=== PATIENT | male | born 1945 | race American Indian/Alaskan Native ===

== ENCOUNTER 2021-12-14 06:33 | Day surgery (SDC) | payer MEDICARE ==
[2021-12-14] MEDS ORDERED: SODIUM CHLORIDE 0.9% 1000 ML 1,000 ML ONE (06:53)
[2021-12-14] MEDS ORDERED: ASPIRIN EC 325 MG TAB PO SCH (07:30)
[2021-12-14 07:47] LABS: Calcium 9.3 mg/dL (8.4-10.2)
[2021-12-14] MEDS ORDERED: SODIUM CHLORIDE 0.9% 500 ML 500 ML IV SCH (08:00)
[2021-12-14] MEDS ORDERED: SODIUM CHLORIDE 0.9% 1000 ML 1,000 ML IV SCH (08:00)
[2021-12-14] MEDS ORDERED: HEPARIN/NS 5000 UNIT/500ML 1,000 ML IR ONE (08:42)
[2021-12-14] MEDS ORDERED: NITROGLYCERIN SYRINGE 3 ML ONE (08:43)
[2021-12-14] MEDS ORDERED: LIDOCAINE (1%) 10 MG/1 ML VIAL 20 ML MDV ONE (08:43)
[2021-12-14] MEDS ORDERED: fentaNYL 100 MCG/2 ML INJ ONE (08:43)
[2021-12-14] MEDS ORDERED: MIDAZOLAM 2 MG/2 ML INJ ONE (08:43)
[2021-12-14] MEDS: HEPARIN 10,000 UNITS/10 ML VIAL ONE ×3 (09:17→09:40)
[2021-12-14] MEDS: VERAPAMIL 5 MG/2 ML INJ ONE ×2 (09:19→09:25)
[2021-12-14] MEDS ORDERED: HEPARIN/NS 5000 UNIT/500ML 500 ML IR ONE (10:17)
--- NOTE | 2021-12-14 10:43 | Electrocardiograph Report ---
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
[2021-12-14] MEDS ORDERED: HYDROcodone/ACETAMINOPHEN 5-325 MG TAB PO PRN (11:00)
[2021-12-14] MEDS ORDERED: traMADol 50 MG TAB PO PRN (11:00)
--- NOTE | 2021-12-14 12:24 | Short Stay Summary ---
Short Stay Documentation - History H&P: obtained from office - Allergies and Medications Current Medications: Allergies No Known Allergies Allergy (Verified 12/14/21 07:01) Home Medications Medication Instructions Recorded Confirmed Last Taken Type Aspirin [Adult Aspirin] 81 mg PO DAILY 12/14/21 12/14/21 12/13/21 History Ezetimibe [Zetia] 10 mg PO DAILY 12/14/21 12/14/21 12/13/21 History Metoprolol SUCCINATE ER TAB 25 mg PO DAILY 12/14/21 12/14/21 12/13/21 History amLODIPine [Norvasc] 5 mg PO DAILY 12/14/21 12/14/21 12/13/21 History Active Medications Hydrocodone Bitart/Acetaminophen (Hydrocodone/Acetaminophen 5-325 Mg Tab) 1 each PO Q4H PRN PRN Reason: Pain, Moderate (4-6) Aspirin (Aspirin Ec 325 Mg Tab) 325 mg PO ONCE@0730 ANALI Stop: 12/14/21 15:00 Last Admin: 12/14/21 07:55 Dose: 325 mg Sodium Chloride (Nacl 0.9% 1000 Ml) 1,000 mls @ 100 mls/hr IV DIRECT ANALI Tramadol HCl (Tramadol 50 Mg Tab) 50 mg PO Q4H PRN PRN Reason: Pain, Mild (1-3) - Physical exam Integumentary: other (Dressing clean dry and intact with no signs of bleeding or hematoma) - Brief post op/procedure progress note Date of procedure: 12/14/21 Pre-op diagnosis: Abnormal stress test/coronary artery disease Post-op diagnosis: same Anesthesia: local Estimated blood loss: minimal - Hospital course Hospital course: Patient presents today for cardiac cath. Patient tolerated seizure well with no complication. 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 - Disposition Condition at discharge: Good Disposition: 01 HOME / SELF CARE / HOMELESS - Discharge Diagnoses (1) Coronary artery disease Status: Acute (2) Ischemic cardiomyopathy Status: Acute (3) Dyslipidemia Status: Acute (4) Renal insufficiency Status: Acute (5) Hypertension Status: Acute Short Stay Discharge Plan Activity: advance as tolerated Diet: low fat, low cholesterol, low salt Wound: keep clean and dry, per your surgeon's advice Follow up with: EBONIE BHATTI MD [Primary Care Provider] - 7 Days AMBER LOVETT MD [Staff Physician] - 01/10/22 11:15 am ( patient follow-up appointment with Dr. Lovett, 01/10/2022 at 11:15 AM at our [place] location. Phone #[phone])
[2021-12-14 14:32] VITALS: BP 141/76
--- NOTE | 2021-12-15 07:56 | Cardiac Catherization Report ---
DATE OF SERVICE: 12/14/2021 LEFT HEART CATHETERIZATION/IFR REPORT CLINICAL INFORMATION: This is a 76-year-old male with known history of myocardial infarction with PCI of the RCA, has decreased LV function on stress test with fixed defects, here for left heart catheterization with decreased LV function and history of renal insufficiency. Procedure was done with moderate sedation, started 9:20, finished at 10:20, 60 minutes of moderate sedation. DESCRIPTION OF PROCEDURE: Procedure was done via the right radial artery, sterile technique and local anesthesia. A 6-Tunisian radial sheath inserted. Left system engaged with a JL3.5 catheter. Left main is short and medium caliber and patent. LAD proximal, mid diffuse 50%. Diagonal 1 ostial 80%, small caliber, diagonal 2 patent, distal LAD patent. Circumflex, large caliber vessel, proximal 60%. OM1 is a large caliber and patent. Circumflex in AV groove was a medium caliber was patent. RCA engaged with JR4 catheter, is a large dominant vessel. Mid has a focal 60% lesion and then the stents in the mid to distal patent. PDA, PLV are patent. LV gram done in MONGOLIAN and GODINEZ shows mild LV dysfunction, EF 45%. LVEDP at 29 mmHg, LV is 163, aortic is 166/80. No gradient across the aortic valve on pullback and then IFR of the circumflex engaged to the left system, EBU 3.5 did not work, so had to use JL 3.5. ACT was obtained and IFR was normalized and placed into the OM and showed IFR spot of 0.94. Removed the wire. Angiogram continued ANITRA 3 flow, no dissection or perforation, 60% proximal circ lesion. IFR of the RCA, engaged the right system with JR4 6-Tunisian guiding catheter, equalization of wire and placed an IFR distally, result was 0.98, so the IFR was removed. Continued ANITRA 3 flow, no dissection, perforation, 60% mid RCA lesion. A 6-Tunisian guiding catheter taken over a guidewire. A 6-Tunisian radial sheath was discontinued. Radial band applied. No hematoma, no bleeding. SUMMARY: 1. Left main patent, LAD mid 50%. Diagonal 1 ostial 80%. Diagonal 2 patent, distal LAD patent, circumflex proximal 60% with a negative IFR at 0.94. OM1 patent, distal circ patent. RCA proximal patent, mid stent 60%. Negative IFR 0.98. Mid to distal stent is patent. PDA, PLV patent. 2. Mild LV dysfunction, EF 45%. 3. Continue medical management of nonobstructive coronary artery disease and LV dysfunction. The patient tolerated the procedure well. TID: [id number] RECEIPT: [id number] ALEK/KAZ/KAY MTDD
== END 2021-12-14 15:15 | disposition home or self-care (01) ==
LOC: CATHLABREC 06:33
PROVIDERS: ATTEND Internal Medicine
DX: R94.39 Abnormal result of other cardiovascular function study (principal); I25.10 Atherosclerotic heart disease of native coronary artery without angina pectoris; I12.9 Hypertensive chronic kidney disease with stage 1 through stage 4 chronic kidney disease, or unspecified chronic kidney disease; N18.30 Chronic kidney disease, stage 3 unspecified; E78.5 Hyperlipidemia, unspecified; I25.5 Ischemic cardiomyopathy; I25.2 Old myocardial infarction; Z79.82 Long term (current) use of aspirin; Z79.899 Other long term (current) drug therapy; Z98.890 Other specified postprocedural states
CPT/HCPCS: 36415; 80048; 93005; 93458; 93571; 93572; 96360; 96361; 99156; 99157; C1769; C1887; C1894; J1644; J1815; J2250; J3010; J7030; Q9967

== ENCOUNTER 2022-04-04 18:34 | Emergency (ER) | payer MEDICARE ==
[2022-04-04] MEDS ORDERED: ACETAMINOPHEN 325 MG TAB PO ONE (20:25)
[2022-04-04 21:18] LABS: Bacteria,Urine 1+ /HPF (Negative); Mucus,Urine 3+ /HPF
[2022-04-04 21:18] LABS: Hemoglobin 14.5 gm/dl (11.8-15.2); Mean Corpuscular HGB Conc 32 % (32-34); Mean Corpuscular Volume 97 fl (84-94); Platelet Count 264 K/mm3 (140-440); Red Blood Count 4.64 M/mm3 (3.65-5.03); Red Cell Distribution Width 13.7 % (13.2-15.2)
[2022-04-04 21:20] LABS: Color,Urine Yellow (Yellow)
[2022-04-04 21:29] LABS: Albumin 4.3 g/dL (3.9-5); Calcium 9.5 mg/dL (8.4-10.2)
--- NOTE | 2022-04-04 22:24 | Ultrasound Report ---
ULTRASOUND SCROTUM INDICATION / CLINICAL INFORMATION: fever, testicular pain and swelling. COMPARISON: None available. FINDINGS -- RIGHT: TESTIS: Size = 3.8 x 2.9 x 3.7 cm. - Appearance: No significant abnormality. - Cyst / Mass: None. - Color Doppler Flow: Hypervascular EPIDIDYMIS: Hypervascular. Epididymal cysts are also noted. HYDROCELE: Moderate VARICOCELE: None demonstrated. FINDINGS -- LEFT: TESTIS: Size = 3.3 x 3.2 x 3.8 cm. - Appearance: No significant abnormality. - Cyst / Mass: None. - Color Doppler Flow: No significant abnormality. EPIDIDYMIS: No significant abnormality. HYDROCELE: Small VARICOCELE: None demonstrated. ADDITIONAL FINDINGS: None. IMPRESSION: 1. Hypervascular right testicle and epididymis suggesting epididymoorchitis. There is a moderate righ t and small left hydrocele. Signer Name: Bolivar Stone DO Signed: 04/04/2022 10:20 PM Workstation Name: [id number]
[2022-04-05] MEDS ORDERED: ACETAMINOPHEN W/CODEINE 300-30 MG TAB PO ONE (00:17)
[2022-04-05] MEDS ORDERED: levoFLOXacin 500 MG TAB PO ONE (00:17)
[2022-04-05 01:26] VITALS: BP 130/69
--- NOTE | 2022-04-05 01:43 | Emergency Department Report ---
ED Male HPI - General Chief complaint: Urogenital-Male Stated complaint: BLOOD IN URINE Time Seen by Provider: 04/05/22 00:00 Source: patient Mode of arrival: Ambulatory Limitations: No Limitations - History of Present Illness Initial comments: 76-year-old black male with a past medical history of hypertension, hyperlipidemia, and CAD presents to the emergency department for evaluation of 2-day history of right testicular pain and swelling. He states that pain has been 9 out of 10. He denies injury or trauma and states that he is unsure if he had a fever at home. He denies abdominal pain, dysuria, and penile discharge. MD Complaint: testicle swelling, groin pain -: Gradual, days(s) (2) Location: right testicle Radiation: none Severity: severe Severity scale (0 -10): 10 Quality: aching Consistency: constant Worsens with: other (Ambulation) swelling. denies: discharge, mass, rash, urinary retention, blood in urine, dysuria, fever, nausea/vomiting, incontinence - Related Data Home Medications Medication Instructions Recorded Confirmed Last Taken Aspirin [Adult Aspirin] 81 mg PO DAILY 12/14/21 12/14/21 12/13/21 Ezetimibe [Zetia] 10 mg PO DAILY 12/14/21 12/14/21 12/13/21 Metoprolol SUCCINATE ER TAB 25 mg PO DAILY 12/14/21 12/14/21 12/13/21 amLODIPine [Norvasc] 5 mg PO DAILY 12/14/21 12/14/21 12/13/21 Previous Rx's Medication Instructions Recorded Last Taken Type Acetaminophen/Codeine [Tylenol 1 tab PO Q6H PRN #12 tab 04/05/22 Unknown Rx /Codeine # 3 tab] levoFLOXacin [Levaquin TAB] 500 mg PO QDAY 10 Days #10 tablet 04/05/22 Unknown Rx Allergies Allergy/AdvReac Type Severity Reaction Status Date / Time No Known Allergies Allergy Verified 04/04/22 20:18 ED Review of Systems ROS: Stated complaint: BLOOD IN URINE Other details as noted in HPI Comment: All other systems reviewed and negative Constitutional: denies: chills, fever Respiratory: denies: shortness of breath Cardiovascular: denies: chest pain, palpitations Gastrointestinal: denies: abdominal pain, nausea, vomiting, diarrhea, hematemesis, melena, hematochezia Genitourinary: testicular pain. denies: urgency, dysuria, frequency, hematuria, discharge Musculoskeletal: denies: back pain Skin: denies: rash, lesions Neurological: denies: headache, weakness ED Past Medical Hx - Past Medical History Previous Medical History?: Yes Hx Hypertension: Yes Hx Heart Attack/AMI: Yes - Surgical History Past Surgical History?: Yes Hx Coronary Stent: Yes - Social History Smoking Status: Never Smoker Substance Use Type: None - Medications Home Medications: Home Medications Medication Instructions Recorded Confirmed Last Taken Type Aspirin [Adult Aspirin] 81 mg PO DAILY 12/14/21 12/14/21 12/13/21 History Ezetimibe [Zetia] 10 mg PO DAILY 12/14/21 12/14/21 12/13/21 History Metoprolol SUCCINATE ER TAB 25 mg PO DAILY 12/14/21 12/14/21 12/13/21 History amLODIPine [Norvasc] 5 mg PO DAILY 12/14/21 12/14/21 12/13/21 History Acetaminophen/Codeine [Tylenol 1 tab PO Q6H PRN #12 tab 04/05/22 Unknown Rx /Codeine # 3 tab] levoFLOXacin [Levaquin TAB] 500 mg PO QDAY 10 Days #10 tablet 04/05/22 Unknown Rx ED Physical Exam - General Limitations: No Limitations General appearance: alert, in no apparent distress - Head Head exam: Present: atraumatic, normocephalic - Eye Eye exam: Present: normal appearance - Neck Neck exam: Present: normal inspection, lymphadenopathy. Absent: tenderness, full ROM - Respiratory Respiratory exam: Present: normal lung sounds bilaterally. Absent: respiratory distress, wheezes, rales, chest wall tenderness - Cardiovascular Cardiovascular Exam: Present: regular rate, normal heart sounds - GI/Abdominal GI/Abdominal exam: Present: soft, normal bowel sounds. Absent: distended, tenderness, guarding, rebound, rigid - exam: Present: testicular tenderness, scrotal swelling. Absent: urethral discharge - Extremities Exam Extremities exam: Present: normal inspection, normal capillary refill - Back Exam Back exam: Present: normal inspection. Absent: CVA tenderness (R), CVA tenderness (L) - Neurological Exam Neurological exam: Present: alert, oriented X3 - Psychiatric Psychiatric exam: Present: normal affect, normal mood - Skin Skin exam: Present: warm, dry, intact, normal color ED Course Vital Signs 04/04/22 04/04/22 04/05/22 20:16 21:30 01:19 Temperature 102.3 F H 98.0 F Pulse Rate 99 H 79 Respiratory 18 18 18 Rate Blood Pressure 131/81 130/69 [Left] O2 Sat by Pulse 100 100 Oximetry ED Medical Decision Making - Lab Data Result diagrams: 04/04/22 20:56 04/04/22 20:56 - Radiology Data Radiology results: report reviewed, image reviewed Scrotal ultrasound: FINDINGS -- RIGHT: TESTIS: Size = 3.8 x 2.9 x 3.7 cm. - Appearance: No significant abnormality. - Cyst / Mass: None. - Color Doppler Flow: Hypervascular EPIDIDYMIS: Hypervascular. Epididymal cysts are also noted. HYDROCELE: Moderate VARICOCELE: None demonstrated. FINDINGS -- LEFT: TESTIS: Size = 3.3 x 3.2 x 3.8 cm. - Appearance: No significant abnormality. - Cyst / Mass: None. - Color Doppler Flow: No significant abnormality. EPIDIDYMIS: No significant abnormality. HYDROCELE: Small VARICOCELE: None demonstrated. ADDITIONAL FINDINGS: None. IMPRESSION: 1. Hypervascular right testicle and epididymis suggesting epididymoorchitis. There is a moderate right and small left hydrocele. - Medical Decision Making 76-year-old black male with a past medical history of hypertension, hyperlipidemia, and CAD presents to the emergency department for evaluation of 2-day history of right testicular pain and swelling. He states that pain has been 9 out of 10. He denies injury or trauma and states that he is unsure if he had a fever at home. He denies abdominal pain, dysuria, and penile discharge. Scrotal ultrasound positive for epididymoorchitis. Patient discharged home with course of Levaquin along with Tylenol 3 to use as needed for pain. He is advised to follow-up with urology for further evaluation and management and return to the emergency department as needed. He verbalizes understanding of and agreement with plan of care Critical care attestation.: If time is entered above; I have spent that time in minutes in the direct care of this critically ill patient, excluding procedure time. ED Disposition Clinical Impression: Orchitis and epididymitis Disposition: HOME / SELF CARE / HOMELESS Is pt being admited?: No Does the pt Need Aspirin: No Condition: Stable Instructions: Orchitis, Epididymitis, Testicular Self-Exam, [id number], Epididymitis (ED) Additional Instructions: Take medications as prescribed. Follow-up with urology for further evaluation and management. Return to the emergency department as needed. Prescriptions: levoFLOXacin [Levaquin TAB] 500 mg PO QDAY 10 Days #10 tablet Acetaminophen/Codeine [Tylenol /Codeine # 3 tab] 1 tab PO Q6H PRN #12 tab PRN Reason: Pain, Moderate (4-6) Referrals: EVAN MALDONADO MD [Staff Physician] - 3-5 Days Time of Disposition: 01:42
== END 2022-04-05 02:10 | disposition home or self-care (01) ==
LOC: ED 18:34
DX: N45.3 Epididymo-orchitis (principal); I10 Essential (primary) hypertension
CPT/HCPCS: 36415; 80053; 81001; 85027; 87086; 93975; 99284